=== PATIENT | female | born 1990 | race Caucasian/White ===

== ENCOUNTER 2024-04-01 10:16 | Day surgery (SDC) | payer BC ==
[2024-03-31 14:46] LABS: BILIRUBIN,URINE NEGATIVE (Neg); GLUCOSE, URINE NEGATIVE (Neg); KETONES,URINE NEGATIVE (Neg); LEUKOCYTE ESTERASE ,URINE NEGATIVE (Neg); NITRITES, URINE NEGATIVE (Neg); OCCULT BLOOD,URINE NEGATIVE (Neg); PH,URINE 6.5 (4.8-8.0); PROTEIN,URINE NEGATIVE (Neg); UROBILINOGEN,URINE 0.2 E.U/dL (0.2-1.0)
[2024-03-31 14:52] LABS: CLARITY,URINE CLEAR (Clear); COLOR,URINE STRAW (Yellow); UA COLLECTION TYPE CLN CATCH MIDSTREAM
[2024-03-31 15:05] LABS: BASOPHILS % (AUTO) 0.6 % (0-1); EOSINOPHILS % (AUTO) 0.5 % (0-6); LYMPHOCYTES # (AUTO) 1.9 X10'3 (1.1-4.8); LYMPHOCYTES % (AUTO) 22.8 % (21-51); MEAN CORPUSCULAR HEMOGLOBIN 31.8 PG (27.0-31.0); MEAN CORPUSCULAR VOLUME 93.7 FL (78-98); MEAN PLATELET VOLUME 7.9 FL (7.4-10.4); MONOCYTES # (AUTO) 0.5 X10'3 (0-0.9); MONOCYTES % (AUTO) 6.4 % (2-12); NEUTROPHILS # (AUTO) 5.7 X10'3 (1.8-7.7); NEUTROPHILS % (AUTO) 69.7 % (42-75); PRE OP HEMATOCRIT 40.6 % (35.0-45.0); PRE OP HEMOGLOBIN 13.8 g/dL (12.0-16.0); PRE OP PLATELET COUNT 329 X10'3 (140-440); PRE OP WHITE BLOOD COUNT 8.2 10'3 (4.8-10.8); RED BLOOD COUNT 4.33 X10'6 (4.20-5.60)
[2024-03-31 15:10] LABS: URINE HCG NEGATIVE (NEG)
[2024-03-31 15:19] LABS: ALBUMIN 3.9 G/DL (3.4-5.0); ALBUMIN/GLOBULIN RATIO 1.1 (1.1-1.5); ALKALINE PHOSPHATASE 68 IU/L (46-116); BLOOD UREA NITROGEN 11 MG/DL (7-18); BUN/CREATININE RATIO 19.6 (10.0-20.0); CALCIUM 8.8 MG/DL (8.5-10.1); CHLORIDE 102 MMOL/L (99-107); CREATININE 0.56 MG/DL (0.40-0.90); PRE OP ALT 19 U/L (30-65); PRE OP ANION GAP 7 (8-16); PRE OP AST 13 U/L (10-37); PRE OP BILIRUB, TOTAL 0.4 MG/DL (0.0-1.0); PRE OP GLUCOSE 96 MG/DL (70-104); PRE OP POTASSIUM 3.8 MMOL/L (3.4-5.1); PRE OP SODIUM 138 MMOL/L (135-145); TOTAL CARBON DIOXIDE 28.6 MMOL/L (24-32); TOTAL PROTEIN 7.5 G/DL (6.4-8.2); eGFR > 90 ML/MIN
[2024-04-01] VITALS (10 sets, daily range): BP systolic 73–128; BP diastolic 42–93; PULSE 62–84; RESP 12–16; TEMP 97.2; O2SAT 96–99
[~2024-04-01] VITALS: Ht 167.6 cm; Wt 72.6 kg
[2024-04-01] MEDS: ceFAZolin 2gm in dextrose, iso 50 ML IV ONE (05:30)
[~2024-04-01 10:16] MED LIST: DEXA0.5T PO; ELDERBERRY; GLUCOSAMINE/MSM; KEN0.1O TOP; VANCOMYCIN 1GM 200ML H20 (PEG) 200 ML IV ONE; ZINC; [UNRECOGNIZED DRUG - OTHER]; [UNRECOGNIZED DRUG - OTHER]; [UNRECOGNIZED DRUG - OTHER]; [UNRECOGNIZED DRUG - OTHER]
[2024-04-01] MEDS: famotidine 20mg tablet PO ONE (10:57)
[2024-04-01] MEDS: ringers solution, lacted 1,000 ML IV SCH (10:57)
[2024-04-01] MEDS ORDERED: bacitracin 15gm ointment TP ONE (11:52)
[2024-04-01] MEDS ORDERED: BUPIVAcaine 0.5% inj/PF 30 ML ONE (12:38)
[2024-04-01] MEDS ORDERED: BUPIVAcaine/PF 2.5mg/ml (0.25%) 10ml vial ONE (12:38)
[2024-04-01] MEDS ORDERED: BUPIVACAINE liposomal/PF 13.3 MG/ML vial IM ONE (12:39)
[2024-04-01] MEDS ORDERED: sevoflurane 250ml liquid IH ONE (13:40)
[2024-04-01] MEDS ORDERED: propofol inj 20 ML IV ONE (13:41)
[2024-04-01] MEDS ORDERED: ondansetron/PF 4mg/2ml inj ONE (13:41)
[2024-04-01] MEDS ORDERED: fentaNYL/PF 50MCG/1 ML 2ML syringe ONE (13:41)
[2024-04-01] MEDS ORDERED: acetaminophen 1,000mg/100ml IV 100 ML IV ONE (13:42)
[2024-04-01] MEDS ORDERED: dexamethasone sod phosphate 4mg/ml inj. ONE (14:18)
[2024-04-01] MEDS ORDERED: ondansetron/PF 4mg/2ml inj IV PRN (14:40)
[2024-04-01] MEDS ORDERED: morphine 4 MG/ML inj SYRINge IV PRN (14:40)
[2024-04-01] MEDS ORDERED: labetalol 20mg/4ml (5mg/ml) syringe IV PRN (14:40)
[2024-04-01] MEDS ORDERED: hydrALAZINE 20mg/ml inj. IV PRN (14:40)
[2024-04-01] MEDS ORDERED: morphine 2 MG/ML inj. syringe IV PRN (14:40)
[2024-04-01] MEDS ORDERED: fentaNYL/PF 50MCG/1 ML 2ML syringe IV PRN ×2 (14:40)
[2024-04-01] MEDS ORDERED: ringers solution, lacted 1,000 ML IV SCH (14:40)
== END 2024-04-01 16:45 | disposition home or self-care (01) ==
LOC: PAS 10:16
PROVIDERS: ATTEND Podiatrist Foot & Ankle Surgery
DX: G57.52 Tarsal tunnel syndrome, left lower limb (principal); M25.472 Effusion, left ankle; J45.909 Unspecified asthma, uncomplicated; Z79.899 Other long term (current) drug therapy; Z98.890 Other specified postprocedural states; Z79.82 Long term (current) use of aspirin; G89.18 Other acute postprocedural pain; M47.897 Other spondylosis, lumbosacral region
CPT/HCPCS: 28035; 36415; 64445; 64447; 64640; 80053; 81003; 81025; 82948; 85025; 93005; A6223; C9290; J0131; J0690; J1100; J2003; J2405; J2704; J3010; J3490; J7030; J7120; Z7506; Z7508; Z7512; A4215; A4618; A6449; A7000